=== PATIENT | male | born 1945 ===

== ENCOUNTER 2017-01-20 17:16 | Inpatient (IN) | payer MEDICARE ==
[~2017-01-20] VITALS: Ht 182.9 cm; Wt 88.7 kg
[~2017-01-20 17:16] MED LIST: ASPIRIN LOW81 M1 PO; CIPRO500 MG OR; FERROUS SULF325 M3 PO; FLUARIX QUADRIV1 IN1 IM; FLUARIX QUADRIV1 INJ IM; FLUZONE SPLT1 M1 IM; FLUZONE1 M1 IM; LORTAB 5 OR; METFORMIN1000 MG OR; METFORMIN1000 MG PO; PNEUMOVAX 23 IM; TET/DIP TOX1 ML IM; [UNRECOGNIZED DRUG - OTHER] PO; [UNRECOGNIZED DRUG - OTHER] PO
[2017-01-20] MEDS ORDERED: TAMSULOSIN0.4 MG PO (17:35)
[2017-01-20 18:12] LABS: HEMATOCRIT 34.6 % (39.0-50.0); HEMOGLOBIN 11.7 g/dl (14.0-18.0); IMMATURE GRANULOCYTES 0.2 % (0.0-1.0); MEAN CELL VOLUME 94.3 fL CALC (80.0-100.0); MEAN CORPUSCULAR HGB 31.9 pG CALC (26.0-32.0); MEAN CORPUSCULAR HGB CONC 33.8 g/L CALC (32.0-36.0); NEUT# 4.34 thou/uL (1.82-7.42); RED BLOOD COUNT 3.67 mill/uL (4.70-6.10); RED CELL DISTRI WIDTH 12.8 % (11.5-15.5)
[2017-01-20 18:20] LABS: ALBUMIN 4.4 g/dL (3.2-5.0); ALKALINE PHOSPHATASE 45 u/l (38-126); ANION GAP 18 (6-22 (CALC)); BILIRUBIN, TOTAL 0.6 mg/dL (0.0-1.4); BUN 11 mg/dL (8-23); BUN/CREATININE RATIO 13 (12-20 (CALC)); CALCIUM 9.3 mg/dL (8.4-10.2); CARBON DIOXIDE 24 mmol/l (22-30); CHLORIDE 102 mmol/l (95-108); CREATININE 0.9 mg/dL (0.7-1.3); GFR > 60 ML/MIN (>=60 (CALC)); GFR FOR AFR.AMER. > 60 ML/MIN (>=60 (CALC)); GLUCOSE 122 mg/dL (82-115); POTASSIUM 4.7 mmol/l (3.5-5.1); SGOT/AST 28 u/l (19-48); SGPT/ALT 37 u/l (11-66); SODIUM 140 mmol/l (137-146); TOTAL PROTEIN 7.2 g/dL (6.3-8.2)
[2017-01-20 21:02] VITALS: BP 128/69
[2017-01-21] VITALS (7 sets, daily range): BP systolic 111–164; BP diastolic 57–84
[2017-01-21 00:40] LABS: URINE BILIRUBIN - DIPSTICK NEGATIVE (NEGATIVE); URINE BLOOD DIPSTICK NEGATIVE (NEGATIVE); URINE CLARITY CLEAR; URINE COLOR YELLOW; URINE GLUCOSE - DIPSTICK NEGATIVE (NEGATIVE); URINE KETONE TRACE mg/dL (NEGATIVE); URINE LEUK ESTERASE NEGATIVE (NEGATIVE); URINE NITRITE - DIPSTICK NEGATIVE (Negative); URINE PROTEIN - DIPSTICK TRACE mg/dL (NEG-TRACE); URINE UROBILINOGEN - DIPSTICK 0.2 E.U./dL (0.2)
[2017-01-21 05:55] LABS: HEMATOCRIT 36.4 % (39.0-50.0); HEMOGLOBIN 12.3 g/dl (14.0-18.0); MEAN CELL VOLUME 95.5 fL CALC (80.0-100.0); MEAN CORPUSCULAR HGB 32.3 pG CALC (26.0-32.0); MEAN CORPUSCULAR HGB CONC 33.8 g/L CALC (32.0-36.0); NEUT# 3.33 thou/uL (1.82-7.42); RED BLOOD COUNT 3.81 mill/uL (4.70-6.10)
[2017-01-21 06:01] LABS: ALBUMIN 4.1 g/dL (3.2-5.0); ALKALINE PHOSPHATASE 46 u/l (38-126); ANION GAP 17 (6-22 (CALC)); BILIRUBIN, TOTAL 0.5 mg/dL (0.0-1.4); BUN 12 mg/dL (8-23); BUN/CREATININE RATIO 14 (12-20 (CALC)); CALCIUM 9.1 mg/dL (8.4-10.2); CARBON DIOXIDE 26 mmol/l (22-30); CHLORIDE 104 mmol/l (95-108); CREATININE 0.9 mg/dL (0.7-1.3); GFR > 60 ML/MIN (>=60 (CALC)); GFR FOR AFR.AMER. > 60 ML/MIN (>=60 (CALC)); GLUCOSE 117 mg/dL (82-115); POTASSIUM 4.6 mmol/l (3.5-5.1); SGOT/AST 23 u/l (19-48); SGPT/ALT 37 u/l (11-66); SODIUM 142 mmol/l (137-146); TOTAL PROTEIN 6.9 g/dL (6.3-8.2)
[2017-01-22 04:15] VITALS: BP 99/55
[2017-01-22 07:45] VITALS: BP 110/65
[2017-01-22 12:00] VITALS: BP 122/75
[2017-01-22 15:30] VITALS: BP 112/65
[2017-01-22 19:05] VITALS: BP 150/76
[2017-01-22 23:38] VITALS: BP 115/71
[2017-01-23 04:00] VITALS: BP 104/60
[2017-01-23 07:20] VITALS: BP 99/61
[2017-01-23 11:15] VITALS: BP 108/68
[2017-01-23] MEDS ORDERED: MEDDOSEPAK PO (12:46)
[2017-01-23] MEDS ORDERED: LEVAQUIN750 MG PO (12:46)
[2017-01-23] MEDS ORDERED: ROBITUSSIN AC10 ML PO (12:47)
== END 2017-01-23 13:00 | disposition home or self-care (01) | DRG 195 ==
LOC: ENPENDDIS → ED 17:16 → ED-I 18:42 → ED 19:15 → MS2 19:16
PROVIDERS: Emergency Medicine; ADMIT Internal Medicine; ATTEND Internal Medicine
DX: J18.9 Pneumonia, unspecified organism (principal); E11.9 Type 2 diabetes mellitus without complications; N40.0 Benign prostatic hyperplasia without lower urinary tract symptoms; Z79.84 Long term (current) use of oral hypoglycemic drugs
CPT/HCPCS: G0378; J1650

== ENCOUNTER 2022-05-17 12:53 | Emergency (ER) | payer MEDICARE ==
[~2022-05-17] VITALS: Ht 182.9 cm; Wt 84.0 kg
[~2022-05-17 12:53] MED LIST changes: +LEVAQUIN750 MG PO; +MEDDOSEPAK PO; +ROBITUSSIN AC10 ML PO; +TAMSULOSIN0.4 MG PO
[2022-05-17 13:09] VITALS: BP 173/92
[2022-05-17 14:37] LABS: HEMATOCRIT 33.6 % (39.0-50.0); HEMOGLOBIN 11.2 g/dl (14.0-18.0); IMMATURE GRANULOCYTES 0.1 % (0.0-5.0); MEAN CELL VOLUME 98.2 fL CALC (80.0-100.0); MEAN CORPUSCULAR HGB 32.7 pG CALC (26.0-32.0); MEAN CORPUSCULAR HGB CONC 33.3 g/dL CAL (32.0-36.0); NEUT# 3.37 thou/uL (1.82-7.42); RED BLOOD COUNT 3.42 mill/uL (4.70-6.10); RED CELL DISTRI WIDTH 12.6 % (11.5-15.5)
[2022-05-17 14:46] LABS: ALBUMIN 4.6 g/dL (3.2-5.0); ALKALINE PHOSPHATASE 48 u/l (38-126); ANION GAP 15 (6-22 (CALC)); BILIRUBIN, TOTAL 0.3 mg/dL (0.0-1.4); BUN 16 mg/dL (8-23); BUN/CREATININE RATIO 18 (12-20 (CALC)); CARBON DIOXIDE 25 mmol/l (22-30); CHLORIDE 106 mmol/l (95-108); CREATININE 0.9 mg/dL (0.7-1.3); GFR FOR AFR.AMER. > 60 ML/MIN (>=60 (CALC)); GFR OTHER RACES > 60 ML/MIN (>=60 (CALC)); MAGNESIUM 2.1 mg/dL (1.6-2.3); POTASSIUM 4.5 mmol/l (3.5-5.1); SGOT/AST 29 u/l (19-48); SODIUM 142 mmol/l (137-146); TOTAL PROTEIN 7.8 g/dL (6.3-8.2)
[2022-05-17 15:08] LABS: URINE BILIRUBIN - DIPSTICK NEGATIVE (NEGATIVE); URINE BLOOD DIPSTICK NEGATIVE (NEGATIVE); URINE COLOR YELLOW; URINE GLUCOSE - DIPSTICK >=1000 mg/dL (NEGATIVE); URINE KETONE TRACE mg/dL (NEGATIVE); URINE LEUK ESTERASE NEGATIVE (NEGATIVE); URINE NITRITE - DIPSTICK NEGATIVE (Negative); URINE PROTEIN - DIPSTICK NEGATIVE (NEG-TRACE); URINE SPECIFIC GRAVITY 1.015; URINE UROBILINOGEN - DIPSTICK 0.2 E.U./dL (0.2)
== END 2022-05-17 17:41 | disposition home or self-care (01) ==
LOC: ED 12:53
PROVIDERS: Family Medicine
DX: Z03.89 Encounter for observation for other suspected diseases and conditions ruled out (principal); Z59.1 Inadequate housing; Z59.48 Other specified lack of adequate food; Z58.6 Inadequate drinking-water supply

== ENCOUNTER 2022-08-21 07:03 | Day surgery (SDC) | payer MEDICARE ==
[~2022-08-21] VITALS: Ht 182.9 cm; Wt 86.2 kg
[~2022-08-21 07:03] MED LIST changes: +LIPITOR10 M1 PO; +LOSARTAN POTASS50 MG PO
[2022-08-21 09:36] VITALS: BP 132/88
== END 2022-08-21 10:40 | disposition home or self-care (01) ==
LOC: ORM 07:03
PROVIDERS: ATTEND Urology
PROC: 0VB03ZX Excision of Prostate, Percutaneous Approach, Diagnostic (ICD-10-PCS; principal; 2022-08-21)
DX: C61 Malignant neoplasm of prostate (principal); N40.1 Benign prostatic hyperplasia with lower urinary tract symptoms; N13.8 Other obstructive and reflux uropathy; R35.0 Frequency of micturition; I10 Essential (primary) hypertension; E11.9 Type 2 diabetes mellitus without complications; G25.0 Essential tremor; E78.2 Mixed hyperlipidemia; Z79.84 Long term (current) use of oral hypoglycemic drugs; Z79.82 Long term (current) use of aspirin
CPT/HCPCS: J1956